=== PATIENT | male | born 1970 | race Hispanic/Latino ===

== ENCOUNTER 2018-07-23 11:32 | Emergency (ER) | payer BC, OTHER ==
--- NOTE | 2018-07-23 12:27 | RAD ---
PORTABLE CHEST: Date: 07/23/18 PROVIDED CLINICAL HISTORY: Chest pain. FINDINGS: Comparison with 07/10/16. Cardiac and mediastinal silhouette is within normal limits. No focal consolidation, pleural fluid, or pneumothorax apparent. IMPRESSION: No evidence for an acute cardiopulmonary process. POS: OFF
[2018-07-23 13:18] LABS: #Basophils 0.1 thou/uL (0.0-0.2); #Eosinphils 0.2 thou/uL (0.0-0.7); #Monocytes 0.5 thou/uL (0.11-0.59); #Neutrophils 3.3 thou/uL (1.40-6.50); %Basophils 1.3 % (0.0-1.0); %Eosinophils 3.2 % (0.0-10.0); %Lymphocytes 33.3 % (21.0-51.0); %Monocytes 7.6 % (0.0-10.0); %Neutrophils 54.7 % (42.0-75.0); Mean Corpuscular HGB CONC 34.9 g/dL (32.0-36.0); Mean Corpuscular Hemoglobin 29.8 pg (27.0-31.0); Mean Corpuscular Volume 85.2 fL (78.0-98.0); Mean Platelet Volume 10.3 fL (7.4-10.4); Platelet Count 192 thou/uL (130-400); Red Blood Cell (RBC) Count 5.38 mill/uL (4.70-6.10)
[2018-07-23 13:38] LABS: ALT (SGPT) 58 U/L (8-55); AST (SGOT) 42 U/L (5-34); Albumin 4.6 g/dL (3.5-5.0); Alkaline Phosphatase 58 U/L (40-150); Anion Gap 7 mmol/L (10-20); BUN (Urea Nitrogen) 18 mg/dL (8.9-20.6); Bilirubin, Total 0.8 mg/dL (0.2-1.2); Calc. Creatinine Clearance 0 mL/min (70-130); Calcium 9.8 mg/dL (7.8-10.44); Carbon Dioxide 33 mmol/L (22-29); Chloride 101 mmol/L (98-107); Estimated GFR-MDRD Greater than 90; Globulin 3.6 g/dL (2.4-3.5); Glucose 95 mg/dL (70-105); Potassium 3.9 mmol/L (3.5-5.1); Protein, Total 8.2 g/dL (6.0-8.3); Sodium 137 mmol/L (136-145)
[2018-07-23] MEDS ORDERED: Ketorolac Tromethamine 60 MG/2 ML VIAL ONE (15:43)
[2018-07-23] MEDS ORDERED: Cyclobenzaprine 10 MG TAB ONE (15:43)
== END 2018-07-23 16:05 | disposition home or self-care (01) ==
LOC: ERS 11:32
DX: R07.89 Other chest pain (principal); M54.9 Dorsalgia, unspecified; I10 Essential (primary) hypertension; Z79.899 Other long term (current) drug therapy
CPT/HCPCS: 36415; 71045; 80053; 84484; 85025; 93005; 96372; J1885

== ENCOUNTER 2020-10-12 05:20 | Emergency (ER) | payer BC ==
[2020-10-12 05:43] LABS: Hemoglobin 16.2 g/dL (14.0-18.0); Mean Corpuscular Volume 85.2 fL (78.0-98.0); Red Blood Cell (RBC) Count 5.16 mill/uL (4.70-6.10); White Blood Cell (WBC) Count 8.2 thou/uL (4.8-10.8)
[2020-10-12 05:55] LABS: #Basophils 0.1 thou/uL (0.0-0.2); #Eosinphils 0.4 thou/uL (0.0-0.7); #Lymphocytes 3.1 thou/uL (1.20-3.40); #Monocytes 0.9 thou/uL (0.11-0.59); #Neutrophils 3.6 thou/uL (1.40-6.50); %Basophils 1.6 % (0.0-1.0); %Eosinophils 5.5 % (0.0-10.0); %Lymphocytes 38.1 % (21.0-51.0); %Monocytes 11.3 % (0.0-10.0); %Neutrophils 43.5 % (42.0-75.0); Mean Corpuscular HGB CONC 36.8 g/dL (32.0-36.0); Mean Corpuscular Hemoglobin 31.3 pg (27.0-31.0); Mean Platelet Volume 10.8 fL (7.4-10.4); Platelet Count 142 thou/uL (130-400); RBC Distribution Width 11.9 % (11.5-14.5)
[2020-10-12 06:06] LABS: ALT (SGPT) 60 U/L (8-55); AST (SGOT) 43 U/L (5-34); Albumin 4.5 g/dL (3.5-5.0); Alkaline Phosphatase 66 U/L (40-110); Anion Gap 14 mmol/L (10-20); BUN (Urea Nitrogen) 18 mg/dL (8.4-25.7); Bilirubin, Total 0.6 mg/dL (0.2-1.2); Calc. Creatinine Clearance 0 mL/min (70-130); Calcium 9.2 mg/dL (7.8-10.44); Carbon Dioxide 29 mmol/L (22-29); Chloride 98 mmol/L (98-107); Globulin 3.9 g/dL (2.4-3.5); Glucose 104 mg/dL (70-105); Lipase 36 U/L (8-78); Potassium 3.1 mmol/L (3.5-5.1); Protein, Total 8.4 g/dL (6.0-8.3); Sodium 138 mmol/L (136-145)
--- NOTE | 2020-10-12 08:06 | RAD ---
RADIOGRAPH CHEST 1 VIEW: DATE: 10/12/2020 HISTORY: 50-year-old male with midsternal acute chest pain FINDINGS: There are no airspace densities, pulmonary edema, pneumothorax, or cardiomegaly. The lateral costophr enic angles are sharp. IMPRESSION: No acute cardiopulmonary findings.
== END 2020-10-12 07:07 | disposition home or self-care (01) ==
LOC: ERS 05:20
DX: R10.13 Epigastric pain (principal); I10 Essential (primary) hypertension; Z79.899 Other long term (current) drug therapy
CPT/HCPCS: 71045; 80053; 83690; 84484; 85025; 93005